=== PATIENT | female | born 1990 | race Caucasian/White ===

== ENCOUNTER 2017-02-08 09:22 | Emergency (ER) | payer OTHER ==
[~2017-02-08] VITALS: Ht 165.1 cm; Wt 46.7 kg
--- NOTE | 2017-02-08 10:15 | RAD ---
2 views of the chest. 02/08/2017 12:05 PM Indication: cough Comparison: None Findings: There is no focal consolidation or infiltrate identified. There is no effusion or pneumothorax. The cardiomediastinal silhouette and pulmonary vasculature are within normal limits. No osseous abnormality is identified. Impression: No evidence of acute cardiopulmonary process.
[2017-02-08] MEDS ORDERED: METH4TAB2 PO (10:31)
[2017-02-08] MEDS ORDERED: AZIT250T PO (10:31)
[2017-02-08] MEDS ORDERED: BENZ100C PO (10:31)
[2017-02-08] MEDS ORDERED: FLUT1DIS3 IH (10:31)
--- NOTE | 2017-02-08 10:32 | PHYS DOC ---
Past History Past Medical History: Asthma, Other Additional Past Medical Histor: Nail-patella syndrome Past Surgical History: No Surgical History Smoking: Non-smoker Alcohol Use: None Drug Use: None Adult General Chief Complaint Chief Complaint: COUGH HPI HPI 26-year-old female patient complaining of nonproductive cough for 5 months that getting worse for the last 1 week with few episode of cheesy or productive cough. Patient denies fever and chills, shortness of breath, nausea and vomiting , earache and sore throat. Patient states she had history of asthma during her childhood but did not have any episodes of asthma for the last 10 years. Patient states she used Flovent spray belongs to her mother in the last night and felt better. 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 Patient did not seek medical attention for her chronic cough. Review of Systems Review of Systems Constitutional: Denies fever or chills [] Eyes: Denies change in visual acuity, redness, or eye pain [] HENT: Denies nasal congestion or sore throat [] Respiratory: Reports cough, denies shortness of breath [] Cardiovascular: No additional information not addressed in HPI [] GI: Denies abdominal pain, nausea, vomiting, bloody stools or diarrhea [] : Denies dysuria or hematuria [] Musculoskeletal: Denies back pain or joint pain [] Integument: Denies rash or skin lesions [] Neurologic: Denies headache, focal weakness or sensory changes [] Endocrine: Denies polyuria or polydipsia [] All other systems were reviewed and found to be within normal limits, except as documented in this note. Current Medications Current Medications Current Medications Medications (Trade) Dose Ordered Sig/Brayan Start Time Stop Time Status Last Admin Dose Admin Albuterol/ Ipratropium (Duoneb) 3 ml 1X ONCE 02/08/17 10:45 02/08/17 10:46 02/08/17 10:17 3 ML Allergies Allergies Allergies Coded Allergies Type Severity Reaction Last Updated Verified amoxicillin Allergy Intermediate 02/08/17 Yes clavulanic acid Allergy Intermediate 02/08/17 Yes sulfamethoxazole Allergy Intermediate 02/08/17 Yes trimethoprim Allergy Intermediate 02/08/17 Yes Physical Exam Physical Exam Constitutional: Well developed, well nourished, mild distress, non-toxic appearance. [] HENT: Normocephalic, atraumatic, bilateral external ears normal, oropharynx moist, no oral exudates, nose normal. [] Eyes: PERRLA, EOMI, conjunctiva normal, no discharge. [] Neck: Normal range of motion, no tenderness, supple, no stridor. [] Cardiovascular:Heart rate regular rhythm, no murmur [] Lungs & Thorax: Bilateral breath sounds clear to auscultation [] Abdomen: Bowel sounds normal, soft, no tenderness, no masses, no pulsatile masses. [] Skin: Warm, dry, no erythema, no rash. [] Back: No tenderness, no CVA tenderness. [] Extremities: No tenderness, no cyanosis, no clubbing, ROM intact, no edema. [] Neurologic: Alert and oriented X 3, normal motor function, normal sensory function, no focal deficits noted. [] Psychologic: Affect normal, judgement normal, mood normal. [] Current Patient Data Vital Signs Vital Signs Date Time Temp Pulse Resp B/P (MAP) Pulse Ox O2 Delivery O2 Flow Rate FiO2 02/08/17 10:19 99 Room Air 02/08/17 09:40 97.5 104 18 EKG EKG [] Radiology/Procedures Radiology/Procedures Chest x-ray was unremarkable[] Course & Med Decision Making Course & Med Decision Making Pertinent Imaging studies reviewed. (See chart for details) Evaluation of patient in ER showed 26-year-old male patient presented to ER with chronic cough for 5 months that getting worse for one week. Patient had unremarkable physical exam and chest x-ray and felt better with DuoNeb. Plan to discharge patient home with diagnosis of acute bronchitis and upper respiratory infection and chronic cough. Patient instructed to follow up with her primary care physician regarding chronic cough. [] Dragon Disclaimer Dragon Disclaimer This electronic medical record was generated, in whole or in part, using a voice recognition dictation system. Departure Departure: Impression: Primary Impression: Upper respiratory infection Additional Impressions: Chronic cough Nail-patella syndrome Disposition: 01 HOME, SELF-CARE (at 1028) Condition: IMPROVED Referrals: PCP,UNKNOWN (PCP) Patient Instructions: Cough, Adult, Upper Respiratory Infection, Adult Additional Instructions: Follow-up with your primary care physician for chronic, Return to ER if not getting better Scripts Benzonatate (TESSALON PERLE) 100 Mg Capsule 1 CAP PO TID, #21 CAP Prov: BRITTANY ALEXANDER MD 02/08/17 Methylprednisolone (MEDROL) 4 Mg Tab.ds.pk 1 PKG PO UD, #1 PKG Prov: BRITTANY ALEXANDER MD 02/08/17 Azithromycin (ZITHROMAX) 250 Mg Tablet 1 PKG PO UD, #6 TAB Prov: BRITTANY ALEXANDER MD 02/08/17 Fluticasone/Salmeterol (ADVAIR 250-50 DISKUS) 1 Each Disk.w.dev 1 PUFF IH BID, #1 INHALER 5 Refills Prov: BRITTANY ALEXANDER MD 02/08/17 Problem Qualifiers BRITTANY ALEXANDER MD Feb 08, 2017 10:32
[2017-02-08] MEDS ORDERED: IPRATRPIUM/ALBUTEROL 0.5/2.5MG 3 ML NEBU. NEB ONE (10:45)
[2017-02-08 10:53] VITALS: BP 108/76
== END 2017-02-08 10:54 | disposition home or self-care (01) ==
LOC: ER 09:22
DX: J06.9 Acute upper respiratory infection, unspecified (principal); Q87.2 Congenital malformation syndromes predominantly involving limbs; J45.909 Unspecified asthma, uncomplicated; Z88.1 Allergy status to other antibiotic agents
CPT/HCPCS: 71020; 94640; 99284; J7620